=== PATIENT | male | born 1945 | race Two or more races ===

== ENCOUNTER 2016-10-23 03:03 | Emergency (ER) | payer MEDICARE, MEDICAID ==
--- NOTE | 2016-10-23 06:14 | ER ---
ADMIT: 10/23/2016 RM/LOC: ER [facility] MR#: [id number] [facility] [id number] [place], [place] [address] [place] [address] Emergency Room Report SEX: M AGE: 71 : 1945 DATE: 10/23/2016 The patient is a 71-year-old, Croatian-speaking male, with history of diabetic neuropathy, hypertension, hyperlipidemia complaining of URI symptoms for the past 3 days associated with cough, sore throat, body aches, and headache. Denies any fever, vomiting, or diarrhea. Exam remarkable for nontoxic, afebrile male, in no acute distress. Offered doxycycline 200 mg load, 100 mg b.i.d. x7 days. Fluid push, Tylenol, and follow up with Luisito Mccollum as needed. Seth Hendrickson MD/ shannen JOB #: [id number] CC: Seth Hendrickson MD, Attending Physician Luisito Mccollum PA-C, Family Physician Luisito Mccollum PA-C
== END 2016-10-23 03:58 | disposition home or self-care (01) ==
LOC: ER 03:03
DX: J06.9 Acute upper respiratory infection, unspecified (principal); E11.9 Type 2 diabetes mellitus without complications; I10 Essential (primary) hypertension; Z90.49 Acquired absence of other specified parts of digestive tract; Z88.6 Allergy status to analgesic agent; Z79.84 Long term (current) use of oral hypoglycemic drugs; Z79.899 Other long term (current) drug therapy

== ENCOUNTER 2016-10-23 23:01 | Emergency (ER) | payer MEDICARE, MEDICAID ==
--- NOTE | 2016-10-24 02:49 | ER ---
ADMIT: 10/23/2016 RM/LOC: ER [facility] MR#: [id number] [address] [address] [place] ROB[address]S [address] [place] [id number] Emergency Room Report SEX: M AGE: 71 : 1945 DATE: 10/23/2016 The patient is a 71-year-old male, seen by this physician at 3:00 a.m. for bronchitis, discharged with doxycycline, back again tonight complaining of increased headache, body aches, sore throat, cough. Exam remarkable for nontoxic, afebrile male with diminished breath sounds, but no audible wheeze. Treated with DuoNeb aerosol x2, prednisone 60 mg load and 40 mg q.a.m. x4 days. Chest x-ray, negative. EKG shows sinus rhythm without ST-T or Q-wave change. Hemoglobin 12.2, otherwise normal CBC. CMP; glucose 133, D-dimer 0.32, lactic 0.7, lipase 188, troponin less than 0.015, CRP less than 0.29. UA, negative. BN peptide 24. Followup with Luisito Mccollum as needed. Seth Hendrickson MD/ shannen JOB #: [id number] CC: Seth Hendrickson MD, Attending Physician Mi Thakkar APRN-[employer], Family Physician Luisito Mccollum PA-C
== END 2016-10-24 01:15 | disposition home or self-care (01) ==
LOC: ER 23:01
DX: J20.9 Acute bronchitis, unspecified (principal); J06.9 Acute upper respiratory infection, unspecified; E11.40 Type 2 diabetes mellitus with diabetic neuropathy, unspecified; E78.5 Hyperlipidemia, unspecified; I10 Essential (primary) hypertension; Z88.6 Allergy status to analgesic agent; Z90.49 Acquired absence of other specified parts of digestive tract